=== PATIENT | male | born 1955 | race Two or more races ===

== ENCOUNTER 2018-06-03 13:04 | Inpatient (IN) | payer OTHER ==
[~2018-06-03] VITALS: Ht 172.7 cm; Wt 80.6 kg
[2018-06-03] MEDS ORDERED: GLIP5 PO (13:16)
[2018-06-03] MEDS ORDERED: METF-960 PO (13:16)
[2018-06-03] MEDS ORDERED: HIGH CHOLESTEROL MED PO (13:16)
[2018-06-03] MEDS ORDERED: IOVERSOL 350 MG/ML 100 ML VIAL ONE (13:22)
[2018-06-03] MEDS ORDERED: SODIUM CHLORIDE 0.9% 100 ML ONE (13:22)
[2018-06-03 13:38] LABS: BASOPHILS % (AUTO) 0.8 % (0.0-2.0); HEMATOCRIT 46.5 % (41-53); HEMOGLOBIN 16.2 g/dL (13.5-17.5); LYMPHOCYTES # (AUTO) 1.9 K/uL (1.0-4.8); LYMPHOCYTES % (AUTO) 16.6 % (22.0-44.0); MEAN CORPUSCULAR HGB CONC 34.8 G/dL (31.0-37.0); MEAN CORPUSCULAR VOLUME 86 fL (80-100); MONOCYTES # (AUTO) 0.7 K/uL (0.1-1.0); NEUTROPHILS # (AUTO) 8.4 K/uL (1.8-7.7); NEUTROPHILS % (AUTO) 75.6 % (40.0-70.0); PLATELET COUNT (AUTO) 160 K/uL (150-450); RED BLOOD CELL COUNT(AUTO) 5.39 MIL/uL (4.50-5.90); RED CELL DISTRIBUTION WIDTH 12.8 % (11.5-14.5)
[2018-06-03 13:44] LABS: INR 0.9 (0.9-1.1); PROTHROMBIN TIME 9.9 SEC (9.4-11.6)
[2018-06-03 13:50] LABS: CALCIUM, TOTAL 8.6 mg/dL (8.8-10.5); CREATININE 1.64 mg/dL (0.60-1.30)
[2018-06-03 13:55] LABS: ALBUMIN 2.8 g/dL (3.4-5.0); BILIRUBIN,TOTAL 0.4 mg/dL (0.1-1.0); TOTAL PROTEIN, SERUM 6.8 g/dL (6.4-8.2)
[2018-06-03] MEDS ORDERED: LABETALOL HCL 200 MG in DEXTROSE 5%-WATER 160 ML IV PRN ×2 (14:00→17:31)
[2018-06-03] MEDS ORDERED: ASPIRIN 325 MG TABLET PO ONE (14:15)
[2018-06-03] MEDS ORDERED: ACETAMINOPHEN 325 MG TABLET PO PRN (14:45)
[2018-06-03] MEDS ORDERED: ONDANSETRON HCL 4 MG/2 ML VIAL IVP PRN (14:45)
[2018-06-03 16:00] VITALS: BP 149/88
[2018-06-03 16:18] LABS: GLUCOSE,POINT OF CARE 337 MG/DL (70-110)
[2018-06-03] MEDS ORDERED: DEXTROSE 50%-WATER 25 GM/50 ML SYRINGE IVP PRN (17:45)
[2018-06-03] MEDS ORDERED: INSULIN LISPRO 100 UNITS/ML SQ PRN (17:45)
[2018-06-03] MEDS ORDERED: OXYGEN THERAPY IH SCH (20:00)
== END 2018-06-03 16:45 | disposition left against medical advice (07) | DRG 65 ==
LOC: EMS 13:09 → ICU 14:45
PROVIDERS: ADMIT Internal Medicine; ATTEND Internal Medicine
DX: I63.311 Cerebral infarction due to thrombosis of right middle cerebral artery (principal); I16.1 Hypertensive emergency; E11.9 Type 2 diabetes mellitus without complications; E78.00 Pure hypercholesterolemia, unspecified; E78.5 Hyperlipidemia, unspecified; I10 Essential (primary) hypertension; I65.21 Occlusion and stenosis of right carotid artery; R29.810 Facial weakness; R47.1 Dysarthria and anarthria; Z79.899 Other long term (current) drug therapy
CPT/HCPCS: 70496; 82948; 93005; 99291; G0378; J3490; J7050; J7060

== ENCOUNTER 2022-09-23 11:41 | Inpatient (IN) | payer OTHER, MEDICARE ==
[~2022-09-23] VITALS: Ht 177.8 cm; Wt 77.0 kg
[~2022-09-23 11:41] MED LIST: GLIP5TAB12 PO; HIGH CHOLESTEROL MED PO; METF-1211 PO
[2022-09-23] MEDS ORDERED: SODIUM CHLORIDE 0.9% 1,000 ML IV ONE (12:00)
[2022-09-23 12:24] LABS: BASOPHILS % (AUTO) 0.7 % (0.0-2.0); EOSINOPHILS % (AUTO) 0.1 % (1.0-6.0); HEMATOCRIT 30.3 % (41-53); HEMOGLOBIN 10.1 g/dL (13.5-17.5); LYMPHOCYTES # (AUTO) 0.5 K/uL (1.0-4.8); LYMPHOCYTES % (AUTO) 3.6 % (22.0-44.0); MEAN CORPUSCULAR HEMOGLOBIN 30.4 pg (26.0-34.0); MEAN CORPUSCULAR HGB CONC 33.2 G/dL (31.0-37.0); MEAN CORPUSCULAR VOLUME 91 fL (80-100); MONOCYTES # (AUTO) 0.5 K/uL (0.1-1.0); MONOCYTES % (AUTO) 3.8 % (2.0-9.0); NEUTROPHILS # (AUTO) 12.6 K/uL (1.8-7.7); NEUTROPHILS % (AUTO) 91.8 % (40.0-70.0); PLATELET COUNT (AUTO) 210 K/uL (150-450); RED BLOOD CELL COUNT(AUTO) 3.32 MIL/uL (4.50-5.90); RED CELL DISTRIBUTION WIDTH 14.5 % (11.5-14.5)
[2022-09-23 12:24] LABS: COVID AG,FIA SOURCE NASOPHARYNGEAL
[2022-09-23 12:35] LABS: ANION GAP 17 mmol/L (8-16); CALCIUM, TOTAL 8.4 mg/dL (8.8-10.5); CARBON DIOXIDE 18 mmol/L (22-29); CHLORIDE 107 mmol/L (98-107); CREATININE 6.33 mg/dL (0.60-1.30); GLOMERULAR FILTR. RATE CALC 9 mL/min (>60); GLUCOSE,RANDOM 151 mg/dL (70-110); POTASSIUM 4.1 mmol/L (3.5-5.1); SODIUM SERUM 142 mmol/L (136-145)
[2022-09-23 12:36] LABS: PROTHROMBIN TIME 10.9 SEC (9.4-11.6)
[2022-09-23 12:43] LABS: LACTIC ACID 1.6 mmol/L (0.4-2.0)
[2022-09-23 12:50] LABS: ALANINE AMINOTRANSFERASE 11 U/L (12-78); ALBUMIN 3.2 g/dL (3.4-5.0); ALKALINE PHOSPHATASE 81 U/L (46-116); ASPARTATE AMINOTRANSFERASE 13 U/L (15-37); BILIRUBIN,TOTAL 0.6 mg/dL (0.1-1.0); CREATINE KINASE, TOTAL ONLY 75 U/L (39-308); FREE T4 (FREE THYROXINE) 1.35 ng/dL (0.76-1.46); LIPASE 103 U/L (73-393); THYROID STIMULATING HORMONE 1.87 uIU/mL (0.36-3.74); TOTAL PROTEIN, SERUM 7.5 g/dL (6.4-8.2)
[2022-09-23 12:51] LABS: AMMONIA < 10 umol/L (11-32)
[2022-09-23 12:54] LABS: B-TYPE NATRIURETIC PEPTIDE 2030 pg/mL (0-100)
[2022-09-23] MEDS ORDERED: ASPI-989 PO (13:45)
[2022-09-23] MEDS ORDERED: CARV6 PO (13:45)
[2022-09-23] MEDS ORDERED: CALC0.25 PO (13:45)
[2022-09-23] MEDS ORDERED: AMLO-257 PO (13:45)
[2022-09-23] MEDS ORDERED: EMPA25TA3 PO (13:45)
[2022-09-23] MEDS ORDERED: GABA-1181 PO (13:45)
[2022-09-23] MEDS ORDERED: MIRT-89 PO (13:45)
[2022-09-23] MEDS ORDERED: ATOR40TA28 PO (13:45)
[2022-09-23] MEDS ORDERED: GLIP5TAB12 PO (13:45)
[2022-09-23] MEDS ORDERED: HYDR50TA36 PO (13:45)
[2022-09-23 13:59] LABS: APPEARANCE,URINE CLEAR (CLEAR); BILIRUBIN,URINE NEGATIVE (NEGATIVE); GLUCOSE, URINE (UA) 70-100 mg/dL (NEGATIVE); LEUKOCYTE ESTERASE ,URINE SMALL (NEGATIVE); NITRATE,URINE NEGATIVE (NEGATIVE); OCCULT BLOOD,URINE LARGE (NEGATIVE); PH,URINE 6.5 (5.0-8.0); PROTEIN,URINE >600,SEE CONFIRM mg/dL (NEGATIVE); SPECIFIC GRAVITIY, URINE 1.019 (1.003-1.030)
[2022-09-23 14:06] LABS: AMPHET/METH SCREEN,URINE NEGATIVE (NEGATIVE); BARBITURATE SCREEN, URINE NEGATIVE (NEGATIVE); BENZODIAZEPINES SCREEN,URINE NEGATIVE (NEGATIVE); CANNABINOID SCREEN,URINE NEGATIVE (NEGATIVE); COCAINE SCREEN,URINE NEGATIVE (NEGATIVE); METHADONE SCREEN, URINE NEGATIVE (NEGATIVE); OPIATE SCREEN,URINE NEGATIVE (NEGATIVE); PHENCYCLIDINE SCREEN,URINE NEGATIVE (NEGATIVE)
[2022-09-23 14:13] LABS: SULFOSALICYLIC ACID,URINE 4+ (Negative)
[2022-09-23 14:14] LABS: BACTERIA,URINE Many /HPF (None Seen)
[2022-09-23 16:15] VITALS: BP 171/103
[2022-09-23] MEDS ORDERED: ONDANSETRON HCL 4 MG/2 ML VIAL IVP PRN (16:15)
[2022-09-23] MEDS ORDERED: ALBUTEROL SULFATE 2.5 MG/0.5 ML NEB SOLUTION NEB PRN (16:15)
[2022-09-23] MEDS ORDERED: BISACODYL 10 MG RECTAL RECTAL SUPPOSITORY PR PRN (16:15)
[2022-09-23] MEDS ORDERED: ZOLPIDEM TARTRATE 5 MG TABLET PO PRN (16:15)
[2022-09-23] MEDS ORDERED: IPRATROPIUM BROMIDE 0.5 MG/2.5 ML NEB SOLUTION NEB PRN (16:15)
[2022-09-23] MEDS ORDERED: ACETAMINOPHEN 325 MG TABLET PO PRN (16:15)
[2022-09-23] MEDS ORDERED: HydrALAZINE HCL 20 MG/ML VIAL IVP PRN (16:15)
[2022-09-23] MEDS ORDERED: CefTRIAXone 1 GM/DEXTROSE 50 ML IV SCH (16:15)
[2022-09-23] MEDS ORDERED: MORPHINE SULFATE 2 MG/ML SYRINGE IVP PRN (16:15)
[2022-09-23] MEDS ORDERED: FUROSEMIDE 40 MG/4 ML VIAL IVP ONE (16:15)
[2022-09-23] MEDS ORDERED: MAGNESIUM HYDROXIDE SUSPENSION 30 ML UDCUP PO PRN (16:15)
[2022-09-23] MEDS ORDERED: SODIUM CHLORIDE 0.9% 250 ML IV ONE (16:46)
[2022-09-23] MEDS: CefTRIAXone 1 GM/DEXTROSE 50 ML IV SCH (17:06)
[2022-09-23 22:28] VITALS: BP 168/96
[2022-09-23] MEDS: AmLODIPine BESYLATE 5 MG TABLET PO SCH (22:31)
[2022-09-23] MEDS: MIRTAZAPINE 15 MG TABLET PO SCH (22:31)
[2022-09-23] MEDS: CARVEDILOL 6.25 MG TABLET PO SCH (22:31)
[2022-09-23] MEDS: HydrALAZINE HCL 50 MG TABLET PO SCH (22:35)
[2022-09-23 23:45] VITALS: BP 157/89
[2022-09-24 05:15] VITALS: BP 141/95
[2022-09-24 06:23] LABS: % IRON SATURATION 12.7 % (30-44)
[2022-09-24 07:54] VITALS: BP 145/80
[2022-09-24] MEDS: CARVEDILOL 6.25 MG TABLET PO SCH ×2 (08:54→20:38)
[2022-09-24] MEDS: ASPIRIN 325 MG TABLET PO SCH (08:54)
[2022-09-24] MEDS: HydrALAZINE HCL 50 MG TABLET PO SCH ×2 (08:54→20:38)
[2022-09-24] MEDS: HEPARIN SODIUM,PORCINE 5,000 UNITS/ML VIAL SQ SCH ×3 (08:54→18:22)
[2022-09-24] MEDS: ATORVASTATIN CALCIUM 40 MG TABLET PO SCH (08:54)
[2022-09-24] MEDS: PANTOPRAZOLE SODIUM 40 MG/VIAL IVP SCH (08:54)
[2022-09-24] MEDS: AmLODIPine BESYLATE 5 MG TABLET PO SCH ×2 (08:54→20:38)
[2022-09-24 11:23] VITALS: BP 129/76
[2022-09-24 11:46] LABS: CALCIUM, TOTAL 8.3 mg/dL (8.8-10.5); CREATININE 6.34 mg/dL (0.60-1.30)
[2022-09-24 11:48] LABS: MAGNESIUM 2.1 mg/dL (1.80-2.40); PHOSPHORUS 5.9 mg/dL (2.5-4.9)
[2022-09-24] MEDS: HYDROCODONE/ACETAMINOPHEN 5-325 MG TABLET PO PRN (12:35)
[2022-09-24 15:30] VITALS: BP 136/81
[2022-09-24 15:52] LABS: BASOPHILS % (AUTO) 1.1 % (0.0-2.0); EOSINOPHILS % (AUTO) 1.7 % (1.0-6.0); HEMATOCRIT 27.2 % (41-53); HEMOGLOBIN 9.2 g/dL (13.5-17.5); LYMPHOCYTES # (AUTO) 1.2 K/uL (1.0-4.8); LYMPHOCYTES % (AUTO) 12.2 % (22.0-44.0); MEAN CORPUSCULAR HGB CONC 33.8 G/dL (31.0-37.0); MEAN CORPUSCULAR VOLUME 92 fL (80-100); MONOCYTES # (AUTO) 0.6 K/uL (0.1-1.0); MONOCYTES % (AUTO) 6.8 % (2.0-9.0); NEUTROPHILS # (AUTO) 7.4 K/uL (1.8-7.7); NEUTROPHILS % (AUTO) 78.2 % (40.0-70.0); PLATELET COUNT (AUTO) 158 K/uL (150-450); RED BLOOD CELL COUNT(AUTO) 2.97 MIL/uL (4.50-5.90); RED CELL DISTRIBUTION WIDTH 14.5 % (11.5-14.5)
[2022-09-24] MEDS: SOD FERRIC GLUC COMPLX/SUCROSE 125 MG in SODIUM CHLORIDE 0.9% 100 ML IV SCH (16:58)
[2022-09-24] MEDS: CITRIC ACID/SODIUM CITRATE 30 ML SOLUTION UDCUP PO SCH ×2 (18:18→20:39)
[2022-09-24 20:20] VITALS: BP 141/74
[2022-09-24] MEDS: MIRTAZAPINE 15 MG TABLET PO SCH (20:39)
[2022-09-24 21:16] LABS: PATIENT WEIGHT,URINE 170 LBS
[2022-09-24 21:30] LABS: APPEARANCE,URINE TURBID (CLEAR); BILIRUBIN,URINE NEGATIVE (NEGATIVE); GLUCOSE, URINE (UA) 70-100 mg/dL (NEGATIVE); KETONES,URINE NEGATIVE (NEGATIVE); LEUKOCYTE ESTERASE ,URINE TRACE (NEGATIVE); NITRATE,URINE NEGATIVE (NEGATIVE); OCCULT BLOOD,URINE LARGE (NEGATIVE); PROTEIN,URINE 300-600,SEE CONFIRM mg/dL (NEGATIVE); SPECIFIC GRAVITIY, URINE 1.013 (1.003-1.030); UROBILINOGEN,URINE <=1.0 mg/dL (<=1.0)
[2022-09-24 21:32] LABS: CREATININE,URINE RANDOM 52.4 mg/dL (30.0-125.0)
[2022-09-24 21:50] LABS: COLLECTION TIME,URINE 24 HR; TPROTEIN TIMED,URINE 980 mg/dL; TPROTEIN URINE, 24HRS COLL 11270 mg/24Hr (0-165)
[2022-09-24 21:51] LABS: CREATININE CLEARANCE,URINE 6 ml/min (85-125); CREATININE,SERUM FOR CRCL 6.34 mg/dL (0.60-1.30); CREATININE,URINE 52.4 mg/dL (30.0-125.0); SODIUM TIMED,URINE 71 mmol/L (20-110); SODIUM URINE, 24HR CALC 82 mmol/24H (40-220); TOTAL VOLUME,CREAT CLR 1150 mL; UREA NITROGEN URINE,24HR CALC 4117 mg/24H (7000-20000); URINE UREA NITROGEN, TIMED 358 mg/dL (350-1000)
[2022-09-24] MEDS: CefTRIAXone 1 GM/DEXTROSE 50 ML IV SCH (21:52)
[2022-09-24 22:18] LABS: RBC,URINE Full Field /HPF (0-2); SULFOSALICYLIC ACID,URINE 4+ (Negative)
[2022-09-24 22:20] LABS: BACTERIA,URINE Few /HPF (None Seen)
[2022-09-24 23:41] VITALS: BP 135/76
[2022-09-25] MEDS: HEPARIN SODIUM,PORCINE 5,000 UNITS/ML VIAL SQ SCH ×3 (00:09→16:00)
[2022-09-25 03:29] VITALS: BP 129/67
[2022-09-25 07:42] VITALS: BP 138/81
[2022-09-25] MEDS: PANTOPRAZOLE SODIUM 40 MG/VIAL IVP SCH (08:57)
[2022-09-25] MEDS: ASPIRIN 325 MG TABLET PO SCH (08:57)
[2022-09-25] MEDS: CITRIC ACID/SODIUM CITRATE 30 ML SOLUTION UDCUP PO SCH ×3 (08:58→21:18)
[2022-09-25] MEDS: HydrALAZINE HCL 50 MG TABLET PO SCH ×2 (08:58→21:18)
[2022-09-25] MEDS: AmLODIPine BESYLATE 5 MG TABLET PO SCH ×2 (08:58→21:18)
[2022-09-25] MEDS: CARVEDILOL 6.25 MG TABLET PO SCH ×2 (08:58→21:18)
[2022-09-25] MEDS: ATORVASTATIN CALCIUM 40 MG TABLET PO SCH (08:59)
[2022-09-25] MEDS ORDERED: CALCITRIOL 0.25 MCG CAPSULE PO SCH (09:00)
[2022-09-25 12:00] VITALS: BP 123/60
[2022-09-25] MEDS ORDERED: ASPI-1515 PO (13:22)
[2022-09-25] MEDS: EMPAGLIFLOZIN 10 MG TABLET PO SCH (14:20)
[2022-09-25] MEDS ORDERED: SODIUM CHLORIDE 0.9% 250 ML IV ONE (14:23)
[2022-09-25] MEDS: SOD FERRIC GLUC COMPLX/SUCROSE 125 MG in SODIUM CHLORIDE 0.9% 100 ML IV SCH (14:29)
[2022-09-25 15:19] VITALS: BP 113/58
[2022-09-25] MEDS: CefTRIAXone 1 GM/DEXTROSE 50 ML IV SCH (21:18)
[2022-09-25] MEDS: MIRTAZAPINE 15 MG TABLET PO SCH (21:18)
[2022-09-25 22:30] VITALS: BP 133/76
[2022-09-26] MEDS: HEPARIN SODIUM,PORCINE 5,000 UNITS/ML VIAL SQ SCH ×3 (00:50→16:00)
[2022-09-26 01:38] VITALS: BP 142/74
[2022-09-26] MEDS: CARVEDILOL 6.25 MG TABLET PO SCH (08:16)
[2022-09-26] MEDS: HydrALAZINE HCL 50 MG TABLET PO SCH (08:16)
[2022-09-26] MEDS: CITRIC ACID/SODIUM CITRATE 30 ML SOLUTION UDCUP PO SCH (08:16)
[2022-09-26] MEDS: AmLODIPine BESYLATE 5 MG TABLET PO SCH (08:16)
[2022-09-26] MEDS: ASPIRIN 325 MG TABLET PO SCH (08:16)
[2022-09-26] MEDS: ATORVASTATIN CALCIUM 40 MG TABLET PO SCH (08:17)
[2022-09-26] MEDS: EMPAGLIFLOZIN 10 MG TABLET PO SCH (08:17)
[2022-09-26] MEDS: HYDROCODONE/ACETAMINOPHEN 5-325 MG TABLET PO PRN (08:25)
[2022-09-26] MEDS: PANTOPRAZOLE SODIUM 40 MG/VIAL IVP SCH (08:31)
[2022-09-26] MEDS ORDERED: BUMETANIDE 0.25 MG/ML 4 ML VIAL IVP SCH (09:00)
[2022-09-26] MEDS ORDERED: BUMETANIDE 1 MG TABLET PO SCH (09:15)
[2022-09-26 09:37] VITALS: BP 149/83
[2022-09-26 12:00] VITALS: BP 127/65
[2022-09-26] MEDS: SOD FERRIC GLUC COMPLX/SUCROSE 125 MG in SODIUM CHLORIDE 0.9% 100 ML IV SCH (15:00)
[2022-09-26 17:04] VITALS: BP 140/72
== END 2022-09-26 17:30 | disposition short-term general hospital (02) | DRG 682 ==
LOC: EMS 11:43 → 5S 14:34
PROVIDERS: ADMIT Hospitalist; ATTEND Hospitalist
DX: N17.9 Acute kidney failure, unspecified (principal); I50.23 Acute on chronic systolic (congestive) heart failure; J18.9 Pneumonia, unspecified organism; I13.2 Hypertensive heart and chronic kidney disease with heart failure and with stage 5 chronic kidney disease, or end stage renal disease; G93.40 Encephalopathy, unspecified; E87.20 Acidosis, unspecified; N39.0 Urinary tract infection, site not specified; N18.6 End stage renal disease; Z20.822 Contact with and (suspected) exposure to COVID-19; E78.00 Pure hypercholesterolemia, unspecified; E11.22 Type 2 diabetes mellitus with diabetic chronic kidney disease; D63.1 Anemia in chronic kidney disease; E11.40 Type 2 diabetes mellitus with diabetic neuropathy, unspecified; R31.9 Hematuria, unspecified; E11.21 Type 2 diabetes mellitus with diabetic nephropathy; E61.1 Iron deficiency; Z79.82 Long term (current) use of aspirin; I69.30 Unspecified sequelae of cerebral infarction; Z79.84 Long term (current) use of oral hypoglycemic drugs; Z79.899 Other long term (current) drug therapy
CPT/HCPCS: 51702; 70450; 71045; 76770; 80048; 80053; 80307; 81001; 81002; 81050; 82140; 82550; 82570; 82575; 82728; 83540; 83550; 83605; 83690; 83735; 83880; 83970; 84100; 84156; 84166; 84300; 84439; 84443; 84484; 84540; 85025; 85610; 87040; 87086; 87186; 93005; 93306; 99291; C9113; G0378; G0480; J0360; J0696; J1644; J1940; J2916; J3490; J7050; Q9967; 36415-L1; 36415-TC